=== PATIENT | male | born 1945 ===

== ENCOUNTER 2020-10-21 15:42 | Day surgery (SDC) | payer OTHER ==
[~2020-10-21] VITALS: Ht 177.8 cm; Wt 81.4 kg
[2020-10-21] MEDS ORDERED: CHLORHEXIDINE 15 ML UDC PO ONE (16:30)
[2020-10-21] MEDS ORDERED: LACTATED RINGERS 1,000 ML IV SCH (16:30)
[2020-10-21 16:33] VITALS: BP 135/85
[2020-10-21] MEDS ORDERED: potassium citrate PO (16:33)
[2020-10-21] MEDS ORDERED: ALLO100T30 PO (16:33)
[2020-10-21] MEDS ORDERED: ATOR40TA78 PO (16:33)
[2020-10-21] MEDS ORDERED: NORT50CA52 PO (16:33)
[2020-10-21] MEDS ORDERED: LISI-167 PO (16:33)
[2020-10-21] MEDS ORDERED: ROPI0.5T4 PO (16:33)
[2020-10-21] MEDS ORDERED: EPINEPHRINE INJ (16:33)
[2020-10-21 16:42] VITALS: BP 135/85
[2020-10-21 16:53] LABS: MICROSCOPIC NOT IND
[2020-10-21 17:03] LABS: BASOPHILS % (AUTO) 1 % (0-1); EOSINOPHILS % (AUTO) 3 % (1-7); LYMPHOCYTES % (AUTO) 23 % (22-44); MEAN CORPUSCULAR HGB CONC 33.6 g/dL (33.2-36.2); MONOCYTES % (AUTO) 10 % (2-9); NEUTROPHILS % (AUTO) 64 % (42-75); PLATELET COUNT 266 x10^3/uL (130-400); RED BLOOD COUNT 4.42 x10^6/uL (4.38-5.82); RED CELL DISTRIBUTION WIDTH 14.2 % (9.4-14.8)
[2020-10-21 17:10] LABS: CREATININE 0.98 mg/dL (0.7-1.3); INTERNATIONAL NORMALIZED RATIO 1.02 (0.93-1.1); PROTHROMBIN TIME 10.9 Seconds (9.6-11.5)
[2020-10-21 17:20] LABS: ANION GAP 5 mmol/L (5-15); CHLORIDE 104 mmol/L (98-107)
[2020-10-21] MEDS ORDERED: OMNIPAQUE 350 MG/ML, 50 ML BOTTLE ONE (19:52)
[2020-10-21] MEDS ORDERED: FENTANYL PF 100 MCG/2ML ONE (20:04)
[2020-10-21] MEDS ORDERED: PROMETHAZINE 25 MG/ML, 1ML IV PRN (20:30)
[2020-10-21] MEDS ORDERED: ACETAMINOPHEN 325 MG TABLET PO PRN (20:30)
[2020-10-21] MEDS ORDERED: OXYcodone 5 MG/5 ML ORAL.SOL UDC PO PRN (20:30)
[2020-10-21] MEDS ORDERED: HYDROmorphone 2 MG/ML, 1ML IVPush PRN (20:30)
[2020-10-21] MEDS ORDERED: ALBUTEROL SULFATE 2.5 MG/3 ML NPPB PRN (20:30)
[2020-10-21] MEDS ORDERED: hydrALAzine 20 MG/ML, 1ML IV PRN (20:30)
[2020-10-21] MEDS ORDERED: FENTANYL PF 100 MCG/2ML IV PRN (20:30)
[2020-10-21] MEDS ORDERED: KETOROLAC 30 MG/1 ML IV PRN (20:30)
[2020-10-21] MEDS ORDERED: MEPERIDINE/PF 25MG/0.5ML IVPush PRN (20:30)
[2020-10-21] MEDS ORDERED: LABETALOL 5MG/ML, 20ML IV PRN (20:30)
[2020-10-21] MEDS ORDERED: DIAZEPAM 5 MG/ML, 2ML IVPush PRN (20:30)
[2020-10-21] MEDS ORDERED: ONDANSETRON 2MG/ML, 2ML ONE (21:04)
[2020-10-21] MEDS ORDERED: NEOSTIGMINE 1 MG/ML, 10ML ONE (21:04)
[2020-10-21] MEDS ORDERED: ROCURONIUM 10MG/ML,5ML ONE (21:04)
[2020-10-21] MEDS ORDERED: SUCCINYLCHOLINE 20 MG/ML, 10ML ONE (21:04)
[2020-10-21] MEDS ORDERED: PROPOFOL 10 MG/ML, 20ML ONE (21:04)
[2020-10-21] MEDS ORDERED: CEFAZOLIN 1,000 MG ONE (21:04)
[2020-10-21] MEDS ORDERED: DEXAMETHASONE 4 MG/ML, 1ML ONE (21:04)
[2020-10-21] MEDS ORDERED: GLYCOPYRROLATE 0.2MG/1ML, 5ML ONE (21:04)
== END 2020-10-21 22:35 | disposition home or self-care (01) ==
LOC: OR 15:42
PROVIDERS: ATTEND Urology
DX: N13.2 Hydronephrosis with renal and ureteral calculous obstruction (principal); N35.913 Unspecified membranous urethral stricture, male; I10 Essential (primary) hypertension; E78.5 Hyperlipidemia, unspecified; Z79.01 Long term (current) use of anticoagulants; Z79.899 Other long term (current) drug therapy; Z85.46 Personal history of malignant neoplasm of prostate; Z87.442 Personal history of urinary calculi; Z88.8 Allergy status to other drugs, medicaments and biological substances; Z91.041 Radiographic dye allergy status; Z91.013 Allergy to seafood
CPT/HCPCS: 36415; 52356; 74420; 80048; 81003; 82360; 85025; 85610; 87086; 88300; 93005; C1758; C1769; C2617; J0330; J0690; J1100; J2405; J2704; J2710; J3010; J7120; Q9967